=== PATIENT | female | born 1980 | race Two or more races ===

== ENCOUNTER 2021-02-10 08:12 | Emergency (ER) | payer MEDICAID ==
[~2021-02-10] VITALS: Ht 162.6 cm; Wt 59.1 kg
[2021-02-10 08:17] VITALS: Ht 162.6 cm; Wt 59.1 kg
[2021-02-10 08:47] LABS: BASOPHILS 0.5 % (0-2); EOSINOPHILS 0.9 % (0-7); HEMATOCRIT 34.1 % (36.0-48.0); HEMOGLOBIN 11.3 g/dL (12-16); IMMATURE GRANULOCYTES 0.1 % (0-5); LYMPHOCYTE ABS# 1.57 10x3/uL (1.18-3.74); MCH 30.6 pg (26.0-34.0); MCHC 33.1 g/dL (31.0-37.0); MCV 92.4 fL (80.0-100.0); MEAN PLATELET VOLUME 9.1 fL (7.4-10.4); MONOCYTES 7.6 % (2-11); NEUTROPHILS 69.9 % (40-80); PLATELET COUNT 267 10x3/uL (130-400); RBC 3.69 10x6/uL (4.00-5.40); RDW 12.8 % (11.5-14.5); WBC 7.5 10x3/uL (4.8-10.8)
[2021-02-10 08:57] LABS: CALC OSMOLALITY 266 mosm/kg (275-300); CALCIUM 8.2 mg/dL (8.5-10.1); CARBON DIOXIDE 23.5 mmol/L (21.0-32.0); CHLORIDE - SERUM 103 mmol/L (98-107); CREATININE - SERUM 0.7 mg/dL (0.6-1.3); GLUCOSE 86 mg/dL (74-106); POTASSIUM - SERUM 3.8 mmol/L (3.5-5.1); SODIUM 135 mmol/L (136-145); UREA NITROGEN 7 mg/dL (7-18); eGFR NON AFRICAN AMERICAN > 90 mL/min (90-120)
[2021-02-10 09:08] LABS: BILIRUBIN NEGATIVE (NEGATIVE); KETONE NEGATIVE (NEGATIVE); NITRITE NEGATIVE (NEGATIVE); UROBILINOGEN NORMAL mg/dL (< 2)
[2021-02-10 09:09] LABS: BACTERIA MODERATE HPF (NONE SEEN); SQUAMOUS EPITHELIAL 0-5 HPF (0-4); WHITE CELLS - URINE 0-5 HPF (0-4)
[2021-02-10 10:07] LABS: HCG - QUANTITATIVE (MATERNAL) 237500 mIU/mL
[2021-02-10] MEDS ORDERED: MACROBID100 MG PO (11:47)
[2021-02-10 12:08] VITALS: BP 116/64
== END 2021-02-10 12:09 | disposition home or self-care (01) ==
LOC: D.ER 08:12
PROVIDERS: Emergency Medicine
DX: O30.001 Twin pregnancy, unspecified number of placenta and unspecified number of amniotic sacs, first trimester (principal); Z3A.08 8 weeks gestation of pregnancy; N30.90 Cystitis, unspecified without hematuria; R10.30 Lower abdominal pain, unspecified

== ENCOUNTER 2021-02-15 16:26 | Emergency (ER) | payer MEDICAID ==
[~2021-02-15] VITALS: Ht 162.6 cm; Wt 65.0 kg
[~2021-02-15 16:26] MED LIST: MACROBID100 MG PO
[2021-02-15 16:31] VITALS: Ht 162.6 cm; Wt 65.0 kg
[2021-02-15 16:57] LABS: BASOPHILS 0.3 % (0-2); EOSINOPHILS 0.5 % (0-7); HEMATOCRIT 34.2 % (36.0-48.0); HEMOGLOBIN 11.6 g/dL (12-16); IMMATURE GRANULOCYTES 0.4 % (0-5); LYMPHOCYTE ABS# 2.04 10x3/uL (1.18-3.74); LYMPHOCYTES 18.5 % (15-50); MCH 30.9 pg (26.0-34.0); MCHC 33.9 g/dL (31.0-37.0); MCV 91.2 fL (80.0-100.0); MONOCYTES 7.4 % (2-11); NEUTROPHIL ABS# 8.03 10x3/uL (1.56-6.13); NEUTROPHILS 72.9 % (40-80); PLATELET COUNT 285 10x3/uL (130-400); RBC 3.75 10x6/uL (4.00-5.40); RDW 12.8 % (11.5-14.5)
[2021-02-15 17:14] LABS: CALC OSMOLALITY 264 mosm/kg (275-300); CALCIUM 8.5 mg/dL (8.5-10.1); CARBON DIOXIDE 22.7 mmol/L (21.0-32.0); CHLORIDE - SERUM 99 mmol/L (98-107); CREATININE - SERUM 0.8 mg/dL (0.6-1.3); GLUCOSE 86 mg/dL (74-106); POTASSIUM - SERUM 3.4 mmol/L (3.5-5.1); SODIUM 134 mmol/L (136-145); UREA NITROGEN 8 mg/dL (7-18); eGFR NON AFRICAN AMERICAN 84 mL/min (90-120)
[2021-02-15 17:26] LABS: BACTERIA MANY HPF (NONE SEEN); BILIRUBIN NEGATIVE (NEGATIVE); KETONE NEGATIVE (NEGATIVE); NITRITE NEGATIVE (NEGATIVE); SQUAMOUS EPITHELIAL 0-5 HPF (0-4); UROBILINOGEN NORMAL mg/dL (< 2); WHITE CELLS - URINE 0-5 HPF (0-4)
[2021-02-15 17:41] LABS: ALBUMIN 3.7 g/dL (3.4-5.0); ALKALINE PHOSPHATASE 67 U/L (30-120); ALT (SGPT) 11 U/L (10-68); AMYLASE - SERUM 69 U/L (25-115); LIPASE 105 U/L (73-393); PROTEIN - SERUM 7.5 g/dL (6.4-8.2)
[2021-02-15 17:45] LABS: HCG - QUANTITATIVE (MATERNAL) 345520 mIU/mL; TROPONIN-I < 0.017 ng/mL (0.000-0.060)
[2021-02-15] MEDS ORDERED: CEPHALEXIN500 M1 PO (18:20)
[2021-02-15 20:14] VITALS: BP 105/64
== END 2021-02-15 20:14 | disposition home or self-care (01) ==
LOC: D.ER 16:26
PROVIDERS: Family Medicine
DX: O26.891 Other specified pregnancy related conditions, first trimester (principal); Z3A.09 9 weeks gestation of pregnancy; R30.0 Dysuria